=== PATIENT | male | born 1980 | race Two or more races ===

== ENCOUNTER → 2021-01-18 13:03 | Outpatient (BNVA) | payer OTHER, SELFPAY | PROVIDERS: Visit Provider Urology ==

== ENCOUNTER → 2021-02-09 15:18 | Outpatient (BNVA) | payer OTHER, SELFPAY | PROVIDERS: Visit Provider Urology | DX: Z30.09 Encounter for other general counseling and advice on contraception (principal); F41.8 Other specified anxiety disorders | CPT/HCPCS: 99202 ==

== ENCOUNTER 2021-12-11 12:46 | Emergency (ER) | payer OTHER, SELFPAY ==
--- NOTE | ~2021-12-11 | CT_ITS ---
EXAMINATION: CT HEAD WITHOUT CONTRAST CLINICAL INFORMATION: Involuntary movement. COMPARISON: CT head 06/18/2012. TECHNIQUE: Contiguous axial imaging was performed from the skull base to vertex without intravenous administration of contrast. This CT examination was performed using dose optimization techniques as appropriate, variously including the following: *Automated exposure control *Adjustment of mA and/or kV according to patient size (this includes techniques or standardized protocols for targeted exams where dose is matched to indication/reason for exam; i.e. extremities or head) *Use of iterative reconstruction technique DLP: 750 mGy-cm FINDINGS: Mild diffuse commensurate prominence of ventricles and sulci is noted. No intrarenal hemorrhage, tumors or definitive acute infarcts are visualized. Mild multifocal periventricular white matter hypodensities are noted, some of which exhibit a radial orientation and may represent perivenular areas of demyelination. (Series 2 image 31). Largest discrete regions measure approximately 8 mm in maximum dimension along the mid body of the right lateral ventricle. Vague periventricular hypodensities are noted along the posterior bodies of the lateral ventricles. No abnormal extra-axial fluid collections. No significant opacification of the visualized paranasal sinuses, mastoid air cells and middle ear cavities. CT/CT head/brain wo con IMPRESSION: *No definitive acute intracranial abnormalities. * Mild number of scattered periventricular white matter hypodensities, some of which exhibit a radial orientation suggestive of perivenular foci (Freitas's fingers configuration). In the correct clinical setting, these findings may represent demyelinating disease and may be further evaluated with MRI of the brain as clinically indicated. Findings are new compared with CT the head 06/18/2012.
--- NOTE | ~2021-12-11 | XR_ITS ---
EXAMINATION: XR CHEST CLINICAL INFORMATION: Muscle spasm. Rule out lung infection COMPARISON: Chest radiograph 03/18/2018 TECHNIQUE: Frontal view of the chest was obtained. FINDINGS: No significant abnormality is noted involving the heart, lungs, mediastinum, bony thorax or soft tissues. XR/XR chest 1V IMPRESSION: No acute disease within the chest. No focal consolidation.
[2021-12-11 12:48] VITALS: BP 143/90; PULSE 64; RESP 20; TEMP 36.6; O2SAT 99; BMI 25.8
--- NOTE | 2021-12-11 12:55 | ECG_ITS ---
Test Reason : GENERAL MEDICAL Blood Pressure : / mmHG Vent. Rate : 058 BPM Atrial Rate : 058 BPM P-R Int : 162 ms QRS Dur : 090 ms QT Int : 410 ms P-R-T Axes : 051 003 033 degrees QTc Int : 402 ms Sinus bradycardia Otherwise normal ECG When compared with ECG of 28-APR-2019 12:52, Vent. rate has decreased BY 30 BPM Referred By: Jacqueline Miller Electronically Signed By:GURPREET ORTIZ
[2021-12-11] MEDS: methylPREDNISolone Sod Succ 125 MG/2 ML VIAL IVPUSH (13:15)
[2021-12-11] MEDS: 0.9 % Sodium Chloride 1,000 ML 999 ML IV (13:15)
[2021-12-11 13:17] LABS: MANUAL DIFF FLAG NO
[2021-12-11 13:19] LABS: Basophils Percent Auto 0.6 % (0-2); Eosinophils Percent Auto 0.2 % (0-4); Hematocrit 44.4 % (42.0-52.0); Hemoglobin 14.8 g/dl (14.0-18.0); Imm Gran Abs Auto 0.02 X10*3/uL (0.00-0.03); Imm Gran Pct Auto 0.3 % (0.0-0.4); Lymphocytes Absolute Auto 0.9 X10*3/uL (1.2-4.9); Lymphocytes Percent Auto 14.2 % (20-40); Mean Corpuscular HGB Conc 33.3 g/dl (31.0-36.0); Mean Corpuscular Hemoglobin 29.7 pg (27.0-33.0); Mean Platelet Volume 10.5 fL (9.4-12.4); Monocytes Absolute Auto 0.5 X10*3/uL (0.1-1.2); Monocytes Percent Auto 8.2 % (2-11); Neutrophils Absolute Auto 4.9 x10*3/uL (2.0-8.3); Neutrophils Percent Auto 76.5 % (45-73); Platelet Count 299 X10*3/uL (160-400); Red Blood Count 4.99 X10*6/uL (4.60-5.80); Red Cell Distribution Width 13.2 % (11.0-16.0); White Blood Count 6.3 X10*3/uL (4.8-10.8)
[2021-12-11 13:37] LABS: Alanine Aminotransferase 11 U/L (0-40); Albumin Level 4.2 g/dL (3.5-5.0); Alkaline Phosphatase 54 U/L (39-117); Anion Gap 14 (12-20); Aspartate Amino Transferase 15 U/L (5-37); Bilirubin Direct 0.2 mg/dL (0.0-0.5); Bilirubin Total 0.7 mg/dL (0.0-1.0); Blood Urea Nitrogen 14 mg/dL (9-16); Calcium 9.6 mg/dL (8.4-10.2); Carbon Dioxide 25 mmol/L (22-29); Chloride 106 mmol/L (96-108); Creatinine Clr Calc Pharmacy 120.5; Estimated Glomerular Filt Rate > 60; Glucose Random 84 mg/dL (60-115); Lipase 47 U/L (8-78); Potassium 3.9 mmol/L (3.3-5.1); Sodium 141 mmol/L (135-145)
[2021-12-11 13:45] LABS: COVID-19 Test Negative (Negative); IDNOW Serial# 16C4AD1C
--- NOTE | 2021-12-11 13:46 | ED_ITS ---
HPI - General Adult General Chief complaint: General Medical Stated complaint: relapse to MS/seizures Time Seen by Provider: 12/11/21 12:54 Source: patient and family (Spouse) Mode of arrival: ambulatory Limitations: no limitations History of Present Illness HPI narrative: 41-year-old male came in for muscle spasm in the left hand, symptoms started 2 days ago and patient was evaluated at [facility] reportedly was given muscle relaxant and was discharged home, patient came back with more episode of spasm of his left hand, patient had a history of MS and patient reported that it usually present with spasm in the right side, patient has a neurologist at [facility] record was requested from [facility] which is likely not going to be obtained today, patient stated that his symptoms improved in the past if we give him a steroid. Patient declined any headache, no blurry vision, no fever, no chills, no symptoms of urinary tract infection. The spastic stiffness of the left hand has improved suddenly, patient has been monitored in room appear with no acute distress but overall anxious person. Related Data Previous Rx's Medication Instructions Recorded diazepam 2 mg tablet (Valium) 2 mg PO DAILY #2 tab 02/09/21 prednisone 20 mg tablet 20 mg PO BID #10 tab 12/11/21 Allergies Allergy/AdvReac Type Severity Reaction Status Date / Time No Known Allergies Allergy Verified 02/09/21 15:34 Motrin Allergy Unknown Unknown Uncoded 02/09/21 15:34 Review of Systems Review of Systems: All other systems are reviewed and are negative Constitutional: Reports as per HPI and Reports no additional constitutional complaints Eyes: Reports as per HPI and Reports no additional eye complaints Reports system reviewed and no additional complaints, except as documented Cardiovascular: Reports as per HPI and Reports no additional cardiovascular complaints Respiratory: Reports as per HPI and Reports no additional respiratory complaints Gastrointestinal: Reports as per HPI and Reports no additional gastrointestinal complaints Genitourinary: Reports no additional female genitourinary complaints Musculoskeletal: Reports no additional musculoskeletal complaints Skin/Breast: Reports system reviewed and no additional complaints, except as docu Psychiatric: Reports no additional psychiatric complaints Endocrine: Reports no additional endocrine complaints Hematologic/Lymphatic: Reports no additional hematologic/lymphatic complaints Allergic/Immunologic: Reports no additional allergic/immunologic complaints Reports system reviewed and no additional complaints, except as documented and Reports Abnormal speech present [facility] Past Medical History Medical History (Updated 12/11/21 @ 14:51 by Jacqueline Miller MD) Multiple sclerosis Social History Social History Patient Tobacco Use Status: Former Tobacco user Use of substances other than those prescribed or required for medical reasons: No Advance Directives: No Advance Directives Information Provided: Yes Physical Exam ED Vital Signs: Vital Signs - 24 hr 12/11/21 12:48 12/11/21 14:25 Temperature 98 F 98.7 F Pulse Rate 64 56 Respiratory Rate 20 16 Blood Pressure 143/90 H 139/79 Pulse Oximetry 99 100 BMI result Body Mass Index 25.8 Vital signs have been reviewed as appeared to be correct. Blood pressure normal. Heart rate normal. Respiration rate normal. Temperature normal. Oxygen saturation normal. Appearance: Alert. Oriented X3. No acute distress. Head: Normal external exam. Normocephalic. Atraumatic. No Cook signs noted. No raccoon eyes noted Eyes: PERRLA. EOMI. Conjunctiva and sclera normal. Eyelids normal. ENT: TM's Normal. Pharynx normal. Uvula midline. Moist mucous membranes. No trismus noted. No drooling noted. No muffled voice noted. Neck: Normal inspection. Neck supple. FROM. No adenopathy. Thyroid Normal. No meningeal signs. No neck mass noted. CVS: Normal heart rate and rhythm. Heart sound normal. No murmurs noted. Pulses normal throughout. Respiratory: No respiratory distress. Painless inspiration. Breath sounds normal. No wheezes/rales/rhonchi noted. Chest nontender. No accessory muscle usage noted or decreased air movement noted. Abdomen: Soft and nontender. Bowel sounds normal in all 4 quadrants. No distention noted. No organomegaly noted. No visible injury noted. Back: No CVA tenderness. Full range of motion noted. Skin: Skin warm and dry. Normal skin color. Normal skin turgor. No rashes/lesions/lacerations noted. Extremities: No lower extremity edema. Extremities exhibit normal range of motion. Extremities nontender. Neuro: Oriented X 3. Cranial nerve exam: II-XII are grossly intact No motor deficit. No sensory deficit. Reflexes normal. Course Course Course Narrative: Assessment and plan. 41-year-old male reportedly with history of MS that typically present with muscle spasm in the extremities, came back with left upper extremity is spastic contractions, unremarkable blood workup. CT is suggesting demyelinating disease which is consistent with the patient's history. record from [facility] Neurology was requested, patient feels better after administrated a 1000 mg of Solu-Medrol, will discharge the patient home on 5 days worse of prednisone, patient was instructed to contact his neurologist. Medical Decision Making Lab Data Lab results reviewed: Yes I reviewed the patient's lab results. Result diagrams: 12/11/21 13:13 12/11/21 13:13 Labs: Lab Results 12/11/21 12/11/21 12/11/21 Range/Units 13:13 13:13 13:13 WBC 6.3 (4.8-10.8) X10*3/uL RBC 4.99 (4.60-5.80) X10*6/uL Hgb 14.8 (14.0-18.0) g/dl Hct 44.4 (42.0-52.0) % MCV 89.0 (80.0-98.0) fL MCH 29.7 (27.0-33.0) pg MCHC 33.3 (31.0-36.0) g/dl RDW 13.2 (11.0-16.0) % Plt Count 299 (160-400) X10*3/uL MPV 10.5 (9.4-12.4) fL Immature Gran % (Auto) 0.3 (0.0-0.4) % Neut % (Auto) 76.5 H (45-73) % Lymph % (Auto) 14.2 L (20-40) % [place] % (Auto) 8.2 (2-11) % Eos % (Auto) 0.2 (0-4) % Baso % (Auto) 0.6 (0-2) % Lymph # (Auto) 0.9 L (1.2-4.9) X10*3/uL [place] # (Auto) 0.5 (0.1-1.2) X10*3/uL Eos # (Auto) 0.0 (0.0-0.4) X10*3/uL Baso # (Auto) 0.0 (0.0-0.2) X10*3/uL Abs Immat Gran (auto) 0.02 (0.00-0.03) X10*3/uL Absolute Neuts (auto) 4.9 (2.0-8.3) x10*3/uL Absolute Nucleated RBC 0.000 (0.0-0.012) X10*3/uL Nucleated RBC % (auto) 0.0 (0.0-0.2) /100WBC Sodium 141 (135-145) mmol/L Potassium 3.9 (3.3-5.1) mmol/L Chloride 106 (96-108) mmol/L Carbon Dioxide 25 (22-29) mmol/L Anion Gap 14 (12-20) BUN 14 (9-16) mg/dL Creatinine 0.78 (0.5-1.4) mg/dL Estim Creat Clear Calc 120.5 Estimated GFR > 60 Random Glucose 84 (60-115) mg/dL Calcium 9.6 (8.4-10.2) mg/dL Magnesium 2.0 (1.6-2.6) mg/dL Total Bilirubin 0.7 (0.0-1.0) mg/dL Direct Bilirubin 0.2 (0.0-0.5) mg/dL AST 15 (5-37) U/L ALT 11 (0-40) U/L Alkaline Phosphatase 54 (39-117) U/L Total Protein 7.0 (6.5-8.0) g/dL Albumin 4.2 (3.5-5.0) g/dL Lipase 47 (8-78) U/L Urine Color Urine Appearance Urine pH (5.0-8.0) Ur Specific [place] (1.005-1.025) Urine Protein (NEG-TRACE) MG/DL Urine Glucose (UA) (NEG) MG/DL Urine Ketones (NEG) MG/DL Urine Blood (NEG) Urine Nitrite (NEG) Ur Leukocyte Esterase (NEG) COVID-19 (ERWIN) Negative (Negative) COVID-19 Clin Com See Note 12/11/21 Range/Units 14:27 WBC (4.8-10.8) X10*3/uL RBC (4.60-5.80) X10*6/uL Hgb (14.0-18.0) g/dl Hct (42.0-52.0) % MCV (80.0-98.0) fL MCH (27.0-33.0) pg MCHC (31.0-36.0) g/dl RDW (11.0-16.0) % Plt Count (160-400) X10*3/uL MPV (9.4-12.4) fL Immature Gran % (Auto) (0.0-0.4) % Neut % (Auto) (45-73) % Lymph % (Auto) (20-40) % [place] % (Auto) (2-11) % Eos % (Auto) (0-4) % Baso % (Auto) (0-2) % Lymph # (Auto) (1.2-4.9) X10*3/uL [place] # (Auto) (0.1-1.2) X10*3/uL Eos # (Auto) (0.0-0.4) X10*3/uL Baso # (Auto) (0.0-0.2) X10*3/uL Abs Immat Gran (auto) (0.00-0.03) X10*3/uL Absolute Neuts (auto) (2.0-8.3) x10*3/uL Absolute Nucleated RBC (0.0-0.012) X10*3/uL Nucleated RBC % (auto) (0.0-0.2) /100WBC Sodium (135-145) mmol/L Potassium (3.3-5.1) mmol/L Chloride (96-108) mmol/L Carbon Dioxide (22-29) mmol/L Anion Gap (12-20) BUN (9-16) mg/dL Creatinine (0.5-1.4) mg/dL Estim Creat Clear Calc Estimated GFR Random Glucose (60-115) mg/dL Calcium (8.4-10.2) mg/dL Magnesium (1.6-2.6) mg/dL Total Bilirubin (0.0-1.0) mg/dL Direct Bilirubin (0.0-0.5) mg/dL AST (5-37) U/L ALT (0-40) U/L Alkaline Phosphatase (39-117) U/L Total Protein (6.5-8.0) g/dL Albumin (3.5-5.0) g/dL Lipase (8-78) U/L Urine Color YELLOW Urine Appearance CLEAR Urine pH 6.0 (5.0-8.0) Ur Specific [place] >= 1.030 H (1.005-1.025) Urine Protein TRACE (NEG-TRACE) MG/DL Urine Glucose (UA) NEG (NEG) MG/DL Urine Ketones NEG (NEG) MG/DL Urine Blood NEG (NEG) Urine Nitrite NEG (NEG) Ur Leukocyte Esterase NEG (NEG) COVID-19 (ERWIN) (Negative) COVID-19 Clin Com Imaging Data Chest x-ray: Attestation: I personally reviewed and interpreted this imaging study as follows: Radiologist's impression: No acute disease within the chest no focal consolidation. Head CT: Attestation: I personally reviewed and interpreted this imaging study as follows: Radiologist's impression: *No definitive acute intracranial abnormalities. * Mild number of scattered periventricular white matter hypodensities, some of which exhibit a radial orientation suggestive of perivenular foci (Freitas's fingers configuration). In the correct clinical setting, these findings may represent demyelinating disease and may be further evaluated with MRI of the brain as clinically indicated. Findings are new compared with CT the head 06/18/2012. ECG Data Attestation: I personally reviewed and interpreted this ECG as follows: Interpretation: Normal sinus rhythm at 50 beats per minutes, normal intervals, no ST-T changes. Discharge Plan Discharge Clinical Impression: Involuntary muscle contractions Patient Disposition: Home, Self-Care Instructions: Muscle Spasm (ED) Prescriptions: New prednisone 20 mg tablet 20 mg PO BID Qty: 10 0RF No Action diazepam [Valium] 2 mg tablet 2 mg PO DAILY Qty: 2 0RF Rx Instructions: take one tab when arrive for procedure Referrals: Name,MD Pierre [Primary Care Provider] - 2 days
[2021-12-11 14:25] VITALS: BP 139/79; PULSE 56; RESP 16; TEMP 37.1; O2SAT 100
--- NOTE | 2021-12-11 14:30 | PC.NURSE ---
pt alert and walking around, provided a urine, pt reports that the spasms in the left arm/hand improved pt is able to open his fist now, vs stable
[2021-12-11 14:33] LABS: Appearance Urine CLEAR; Color Urine YELLOW; Glucose Urine UA NEG (NEG); Leukocyte Esterase Urine NEG (NEG); Nitrite Urine NEG (NEG); Specific Gravity - Urine >= 1.030 (1.005-1.025); Urine Blood NEG (NEG); Urine Ketones NEG (NEG); Urine Protein TRACE MG/DL (NEG-TRACE)
== END 2021-12-11 15:42 | disposition home or self-care (01) ==
PROVIDERS: Emergency Provider Emergency Medicine; PCP Internal Medicine Geriatric Medicine
DX: R56.9 Unspecified convulsions (principal); M62.40 Contracture of muscle, unspecified site; Z79.899 Other long term (current) drug therapy; Z20.822 Contact with and (suspected) exposure to COVID-19
CPT/HCPCS: 36415; 70450; 71045; 80048; 80076; 81003; 83690; 83735; 85025; 87635; 93005; 99284; J2930

== ENCOUNTER 2024-05-29 10:11 | Outpatient (REF) | payer OTHER, SELFPAY ==
--- NOTE | ~2024-05-29 | XR_ITS ---
EXAMINATION: XR CHEST CLINICAL INFORMATION: Dyspnea on exertion, asthma mild intermittent without complication, seasonal allergic reaction. COMPARISON: X-ray chest 12/11/2021, 03/18/2018. TECHNIQUE: 4 views of the chest. FINDINGS: The lungs are well inflated. Heart size is normal. Minimal dextroscoliosis of the thoracic spine. No pleural effusion. Mild degenerative changes in the thoracic spine. Increased mild left basilar streaky opacities. XR/XR chest 2V IMPRESSION: Mild left basilar streaky opacities. Electronically signed by: Michelle Castro MD 06/18/2024 10:45 AM EDT
[2024-05-29 11:10] LABS: MANUAL DIFF FLAG NO
[2024-05-29 11:23] LABS: Basophils Percent Auto 0.7 % (0-2); Eosinophils Percent Auto 0.5 % (0-4); Hematocrit 47.5 % (42.0-52.0); Imm Gran Abs Auto 0.02 X10*3/uL (0.00-0.03); Imm Gran Pct Auto 0.4 % (0.0-0.4); Lymphocytes Percent Auto 17.8 % (20-40); Mean Corpuscular HGB Conc 33.7 g/dl (31.0-36.0); Mean Corpuscular Hemoglobin 30.5 pg (27.0-33.0); Mean Corpuscular Volume 90.5 fL (80.0-98.0); Mean Platelet Volume 10.9 fL (9.4-12.4); Monocytes Absolute Auto 0.4 X10*3/uL (0.1-1.2); Monocytes Percent Auto 7.1 % (2-11); Neutrophils Absolute Auto 4.1 x10*3/uL (2.0-8.3); Neutrophils Percent Auto 73.5 % (45-73); Platelet Count 305 X10*3/uL (160-400); Red Blood Count 5.25 X10*6/uL (4.60-5.80); Red Cell Distribution Width 13.6 % (11.0-16.0); White Blood Count 5.5 X10*3/uL (4.8-10.8)
[2024-05-29 12:03] LABS: Anion Gap 14 (12-20); Blood Urea Nitrogen 13 mg/dL (9-16); Calcium 9.6 mg/dL (8.4-10.2); Carbon Dioxide 26 mmol/L (22-29); Chloride 105 mmol/L (96-108); Estimated Glomerular Filt Rate > 60; Glucose Random 72 mg/dL (60-115); Potassium 3.5 mmol/L (3.3-5.1); Sodium 141 mmol/L (135-145)
== END 2024-05-29 10:12 | disposition home or self-care (01) ==
LOC: HO.HHCL 10:11
PROVIDERS: Visit Provider Internal Medicine Geriatric Medicine
DX: R06.09 Other forms of dyspnea (principal); J30.2 Other seasonal allergic rhinitis; J45.20 Mild intermittent asthma, uncomplicated
CPT/HCPCS: 36415; 71046; 80048; 85025

== ENCOUNTER 2025-03-13 15:43 | Outpatient (REF) | payer OTHER, SELFPAY ==
--- NOTE | ~2025-03-13 | XR_ITS ---
EXAMINATION: XR FOOT, LEFT CLINICAL INFORMATION: toe pain COMPARISON: None available. TECHNIQUE: AP, lateral, and oblique views of the left foot. FINDINGS: The bones and soft tissues are normal. No fracture. Alignment is anatomic. Joint spaces are maintained. XR/XR foot LT min 3V IMPRESSION: Normal left foot. Electronically signed by: Riley Valentin MD 03/13/2025 04:50 PM EDT
== END 2025-03-13 15:44 | disposition home or self-care (01) ==
LOC: HO.HHCX 15:43
PROVIDERS: Visit Provider Nurse Practitioner
DX: M79.675 Pain in left toe(s) (principal)
CPT/HCPCS: 73630

== ENCOUNTER → 2025-03-13 15:44 | Outpatient (BNV) | payer OTHER, SELFPAY | PROVIDERS: Visit Provider Radiology Diagnostic Radiology | DX: M79.675 Pain in left toe(s) (principal) | CPT/HCPCS: 73630 ==